=== PATIENT | female | born 1960 | race Caucasian/White ===

== ENCOUNTER 2019-05-28 12:29 | Observation (INO) ==
[2019-05-28] MEDS ORDERED: SODIUM CHLORIDE 0.9% 1,000 ML IV STA ×2 (13:25→15:21)
[2019-05-28] MEDS ORDERED: ONDANSETRON 4 MG/2 ML VIAL IV STA (13:26)
[2019-05-28 13:59] LABS: Basophils % 0.4 % (0.0-0.8); Eosinophils # 0.1 10*3/uL (0.0-0.87); Eosinophils % 1.1 % (0.00-10.9); Hematocrit 36.5 VOL% (35.7-47.0); Hemoglobin 12.2 GM/DL (12.0-16.0); Immature Granulocytes % 0.8 %; Immature Granulocytes Absolute 0.08 #; Lymphocytes # 0.5 10*3/uL (1.4-4.0); Lymphocytes % 5.2 % (21.3-54.2); Mean Corpuscular HGB Conc 33.4 GM/DL (32-36); Mean Corpuscular Volume 89.5 FL (87-102); Mean Platelet Volume 8.6 FL (9.6-12.0); Monocytes % 7.5 % (1.7-12.7); Platelet Count 659 T/CUMM (130-400); Red Blood Count 4.08 MC/CUMM (3.8-5.5); Red Cell Distribution Width 14.7 % (9.3-17.3); White Blood Count 9.5 T/CUMM (4-12)
[2019-05-28 14:13] LABS: Alanine Aminotransferase < 6 U/L (13-56); Albumin 2.6 G/DL (3.4-5.0); Alkaline Phosphatase 121 U/L (45-117); Aspartate Amino Transferase 21 U/L (0-37); Bilirubin,Total < 0.39 MG/DL (0.2-1.0); Blood Urea Nitrogen 26 MG/DL (7-18); Calcium 10.1 MG/DL (8.5-10.1); Estimated Glom Filtration Rate 77 ML/MIN; Glucose 90 MG/DL (74-106); Osmolality,Calculated 272.2 MOS/KG (273-304); Total Protein 7.1 G/DL (6.4-8.3)
[2019-05-28 14:41] LABS: Bacteria,Urine Many /HPF (Few); Mucus,Urine Many /LPF (Occasional); RBC,Urine 360 /HPF (0-4); WBC,Urine 836 /HPF (0-6)
[2019-05-28 14:42] LABS: Apearance,Urine Turbid (Clear); Urine Color Reddish-Yellow (Yellow)
[2019-05-28] MEDS ORDERED: HYDROmorphone 2 MG/1 ML VIAL IV STA (14:46)
[2019-05-28] MEDS ORDERED: cefTRIAXone 1,000 MG in SODIUM CHLORIDE 0.9% 100 ML IV STA (14:46)
[2019-05-28] MEDS ORDERED: HYDROmorphone 2 MG/1 ML VIAL ONE (14:47)
[2019-05-28] MEDS ORDERED: ONDANSETRON 4 MG/2 ML VIAL IV PRN (16:50)
[2019-05-28] MEDS ORDERED: MORPHINE 4 MG/1 ML VIAL IV PRN (16:50)
[2019-05-28] MEDS ORDERED: ACETAMINOPHEN 325 MG TABLET PO PRN (16:50)
[2019-05-28] MEDS ORDERED: BISACODYL 10 MG SUPP RECTAL PRN (16:57)
[2019-05-28] MEDS ORDERED: MAGNESIUM HYDROXIDE SUSP 30 ML UDCUP PO ONE (16:57)
[2019-05-28] MEDS ORDERED: ALBUTEROL 1.25 MG/3 ML NEB RESP TX SCH (17:00)
[2019-05-28] MEDS: cefTRIAXone 1,000 MG in SYRINGE 1 EACH IV SCH (17:17)
[2019-05-28] MEDS: SODIUM CHLORIDE 0.9% 1,000 ML IV SCH (17:17)
[2019-05-28] MEDS: POLYETHYLENE GLYCOL POWDER 17 GM PACK PO SCH (17:17)
[2019-05-28] MEDS ORDERED: INFLUENZA VIRUS VACCINE 0.5 ML SYRINGE IM ONE (17:32)
[2019-05-28] MEDS: MORPHINE 4 MG/1 ML VIAL IV PRN ×2 (19:55→22:19)
[2019-05-28] MEDS: ALBUTEROL 1.25 MG/3 ML NEB RESP TX SCH (20:18)
[2019-05-28] MEDS: NICOTINE 14 MG/24 HR PATCH TRANSDERM SCH (21:29)
[2019-05-28] MEDS: DRONABINOL 2.5 MG CAPSULE PO SCH (21:29)
[2019-05-28] MEDS: GABAPENTIN 300 MG CAPSULE PO SCH (21:30)
[2019-05-28] MEDS: DOCUSATE/SENNA 50-8.6 MG TABLET PO SCH (21:30)
[2019-05-28] MEDS: ENOXAPARIN 30 MG/0.3 ML SYRINGE SUBCUT SCH (21:34)
[2019-05-29] MEDS: MORPHINE 4 MG/1 ML VIAL IV PRN ×10 (00:26→23:38)
[2019-05-29 06:07] LABS: Basophils % 0.5 % (0.0-0.8); Eosinophils # 0.1 10*3/uL (0.0-0.87); Eosinophils % 0.8 % (0.00-10.9); Hematocrit 32.1 VOL% (35.7-47.0); Hemoglobin 10.5 GM/DL (12.0-16.0); Immature Granulocytes % 0.7 %; Immature Granulocytes Absolute 0.06 #; Lymphocytes # 0.3 10*3/uL (1.4-4.0); Lymphocytes % 3.4 % (21.3-54.2); Mean Corpuscular HGB Conc 32.7 GM/DL (32-36); Mean Corpuscular Volume 90.7 FL (87-102); Mean Platelet Volume 8.2 FL (9.6-12.0); Monocytes % 6.4 % (1.7-12.7); Neutrophils % 88.2 % (38.7-73.9); Platelet Count 524 T/CUMM (130-400); Red Blood Count 3.54 MC/CUMM (3.8-5.5); Red Cell Distribution Width 14.7 % (9.3-17.3); White Blood Count 8.5 T/CUMM (4-12)
[2019-05-29 06:30] LABS: Calcium 8.9 MG/DL (8.5-10.1); Osmolality,Calculated 276.5 MOS/KG (273-304)
[2019-05-29] MEDS: SODIUM CHLORIDE 0.9% 1,000 ML IV SCH ×2 (06:37→21:02)
[2019-05-29 06:39] LABS: Eosinophils 2 % (0-10); Hypochromasia 1+; Lymphocytes 2 % (20-55); Platelet Estimate Adequate; Segmented Neutrophils 92 % (50-85); Total Cells Counted 100
[2019-05-29] MEDS: ALBUTEROL 1.25 MG/3 ML NEB RESP TX SCH ×4 (07:14→19:26)
[2019-05-29] MEDS: DOCUSATE/SENNA 50-8.6 MG TABLET PO SCH ×2 (08:45→20:59)
[2019-05-29] MEDS: POLYETHYLENE GLYCOL POWDER 17 GM PACK PO SCH (08:45)
[2019-05-29] MEDS: DRONABINOL 2.5 MG CAPSULE PO SCH ×2 (08:46→20:59)
[2019-05-29] MEDS: MEGESTROL 400 MG/10 ML UDCUP PO SCH (08:46)
[2019-05-29] MEDS: PANTOPRAZOLE 40 MG TABLET PO SCH (08:46)
[2019-05-29] MEDS: ATORVASTATIN 10 MG TABLET PO SCH (08:46)
[2019-05-29] MEDS: GABAPENTIN 300 MG CAPSULE PO SCH ×3 (08:46→20:59)
[2019-05-29] MEDS: LISINOPRIL 20 MG TABLET PO SCH (08:46)
[2019-05-29] MEDS: LEVOTHYROXINE 150 MCG TABLET PO SCH (08:46)
[2019-05-29] MEDS: NICOTINE 14 MG/24 HR PATCH TRANSDERM SCH (08:46)
[2019-05-29] MEDS: cefTRIAXone 1,000 MG in SYRINGE 1 EACH IV SCH (18:07)
[2019-05-29] MEDS: ENOXAPARIN 30 MG/0.3 ML SYRINGE SUBCUT SCH (20:59)
[2019-05-30] MEDS: MORPHINE 4 MG/1 ML VIAL IV PRN ×4 (01:41→08:47)
[2019-05-30] MEDS: ALBUTEROL 1.25 MG/3 ML NEB RESP TX SCH ×2 (07:35→11:00)
[2019-05-30] MEDS: ATORVASTATIN 10 MG TABLET PO SCH (08:51)
[2019-05-30] MEDS: MEGESTROL 400 MG/10 ML UDCUP PO SCH (08:51)
[2019-05-30] MEDS: LISINOPRIL 20 MG TABLET PO SCH (08:52)
[2019-05-30] MEDS: LEVOTHYROXINE 150 MCG TABLET PO SCH (08:52)
[2019-05-30] MEDS: GABAPENTIN 300 MG CAPSULE PO SCH (08:53)
[2019-05-30] MEDS: DRONABINOL 2.5 MG CAPSULE PO SCH (08:53)
[2019-05-30] MEDS: PANTOPRAZOLE 40 MG TABLET PO SCH (08:54)
[2019-05-30] MEDS: DOCUSATE/SENNA 50-8.6 MG TABLET PO SCH (08:54)
[2019-05-30] MEDS: POLYETHYLENE GLYCOL POWDER 17 GM PACK PO SCH (08:55)
[2019-05-30] MEDS: NICOTINE 14 MG/24 HR PATCH TRANSDERM SCH (08:55)
[2019-05-30] MEDS ORDERED: HYDROmorphone 2 MG TABLET PO PRN (09:51)
[2019-05-30] MEDS ORDERED: HYDROmorphone 2 MG/1 ML VIAL IV ONE (09:51)
[2019-05-30 12:10] VITALS: BP 125/77
[2019-05-30] MEDS: SODIUM CHLORIDE 0.9% 1,000 ML IV SCH (13:09)
== END 2019-05-30 12:13 | disposition hospice, home (50) ==
LOC: N.ED 12:29 → SUATTDRO 14:48 → N.EDINP 14:48 → INTOOBSV 14:48 → N.4E 15:11
PROVIDERS: ADMIT Internal Medicine; ATTEND Hospitalist